=== PATIENT | male | born 1940 | race Caucasian/White ===

== ENCOUNTER 2024-10-01 11:14 | Emergency (ER) | payer MEDICARE, OTHER, SELFPAY ==
[2024-10-01 11:20] VITALS: BP 142/76
--- NOTE | 2024-10-01 12:26 | ED.GENMED ---
History of Present Illness
General
Chief Complaint: Musculo-Skeletal Complaint
Source: patient
Exam Limitations: none
Time Seen by Provider: 10/01/24 12:08
Nursing documentation reviewed up to this point in time: agreed with
History of Present Illness
History of Present Illness:
Patient is a an 84-year-old male who presents to the ER for evaluation. Patient reports around 1030 this morning he was standing and had sudden burning sharp pain in his right upper calf. He noticed looks like an area of bruising and swelling to
his posterior calf. He is on aspirin no other blood thinners. He feels that this is a ruptured blood vessel. He denies any actual knee pain or injury.
Review of Systems
Review of Systems
Allergies reviewed?: Yes
All Other Systems: ROS reviewed and negative except as documented in HPI and ROS
Constitutional: Reports no symptoms; Denies fever, fatigue or chills
Musculoskeletal: Reports other (right calf discomfort region )
Skin: Reports no symptoms
Neurological: Reports no symptoms
Psychiatric: Reports no symptoms
Phy Exam
General Physical Exam
General Presentation: no apparent distress
General age: appears stated age
General Skin: warm and dry
General Habitus: normal
General Mental: alert
General Hydration: appears well hydrated
Neurological Exam
Neurological Exam: alert and oriented x3
Musculoskeletal Exam
Musculoskeletal Exam: other ( rle with strong pulses palpable area of raised tender firm area of ecchymosis consistent with hematoma full range of motion to knee no bony tenderness to knee no bony tenderness of tib-fib., Strong distal pulses
normal sensation)
Skin Exam
Skin Exam: normal color and warm/dry
Psychiatric Exam
Psychiatric Exam: normal mood/affect
Course
Orders/Labs/Results
Orders:
Orders
10/01/24 12:25
Venous Doppler Lwr Ext Rt [US Periph Venous LOWER Ext RT] Urgent
Comment: rule out DVT versus hematoma
Reason For Exam: tender area of swelling right posterior calf
10/01/24 14:19
Vital Signs- Treatment ONCE
Frequency: Once
Vital Signs
Initial and Last Documented VS:
Initial Vital Signs
Temp Pulse Resp BP Pulse Ox
97.4 F 48 16 142/76 97
10/01/24 11:20 10/01/24 11:20 10/01/24 11:20 10/01/24 11:20 10/01/24 11:20
Last Documented Vital Signs
Temp Pulse Resp BP Pulse Ox
97.4 F 80 18 138/74 98
10/01/24 11:20 10/01/24 14:30 10/01/24 14:30 10/01/24 14:30 10/01/24 14:30
MDM/Problems Addressed
MDM/Problems Addressed:
symptoms are consistent with hematoma. Patient is on aspirin no other blood thinners. Ultrasound reviewed negative for DVT does show nonspecific mass with complex echogenicity and small and internal blood flow likely from bleeding hematoma however
patient will need outpatient nonemergent MRI to rule out benign/malignant soft tissue neoplasm. I did review this closely with patient he was given a copy of his report. Will apply Shlomo for compression discussed with patient to minimally remove Shlomo
throughout the day and apply ice. He is to keep elevated. He is not to sleep with the shlomo wrap .
Discussed close outpatient follow-up family doctor next and return if any worsening of symptoms.
*Radiology
Radiology exam reviewed: radiology read reviewed
*Critical Care Note
Total Time (30-74mins, 75-104mins- exclusive of procedures): Not Applicable
ED Attending Note
-
Portions of this chart may have been created with voice recognition software.� Occasional wrong word or��sound alike� substitutions may have occurred due to the inherent limitations of voice recognition software.
Discharge Plan
Departure
Patient Disposition: Home (Routine Discharge)
Date of Disposition: 10/01/24
Time of Disposition: 14:19
Patient with high blood pressure during this ER visit?: Yes
Condition: Fair
Covid-19: Not Applicable
Discharge Problem:
Hematoma
Instructions: BLOOD PRESSURE, Hematoma
Referrals:
Carmelina Noel MD [Family Provider] -
Activity Restrictions/Additional Instructions:
As discussed wear Shlomo wrap for support remove several times throughout the day and apply ice. You may ice for 20 minutes at a time several times a day.
Keep elevated as much as possible.
Closely follow-up with your family doctor in the next 2 days for reevaluation.
Return if any worsening of symptoms, of increased pain swelling or any further concerns. Also as discussed you will need nonemergent MRI when symptoms have improved to further evaluate the area.
Interventions
Interventions:
*Risk Screen - Suicide Last Done: 10/01/24 14:30
*General Assessment Last Done: 10/01/24 14:30
*Neglect/Abuse Screening Last Done: 10/01/24 14:30
*ED- Fall Risk Assessment Last Done: 10/01/24 14:30
*ED COVID-19 Vaccine History Last Done: 10/01/24 14:33
*Nursing Disposition Last Done: 10/01/24 14:33
ED-Musculoskeletal Assessment Last Done: 10/01/24 14:30
Discharge Date and Time
Discharge Date/Time: 10/01/24 14:33
Print Language: CROATIAN
[2024-10-01 14:30] VITALS: BP 138/74
== END 2024-10-01 14:33 | disposition home or self-care (01) ==
LOC: EMR 11:14
PROVIDERS: EMERGENCY PHYSICIAN Emergency Medicine; FAMILY PHYSICIAN Family Medicine
DX: R58 Hemorrhage, not elsewhere classified (principal); M79.661 Pain in right lower leg; I10 Essential (primary) hypertension; E78.5 Hyperlipidemia, unspecified; N40.0 Benign prostatic hyperplasia without lower urinary tract symptoms; Z79.82 Long term (current) use of aspirin; Z85.820 Personal history of malignant melanoma of skin; Z88.2 Allergy status to sulfonamides; Z88.8 Allergy status to other drugs, medicaments and biological substances
CPT/HCPCS: 99284; 93971